=== PATIENT | female | born 1985 | race Caucasian/White ===

== ENCOUNTER 2020-09-20 16:01 | Emergency (ER) | payer OTHER ==
[~2020-09-20 16:01] MED LIST: ANTIVERT25 MG PO; ATARAX25 MG PO; ATIVAN0.5 MG PO; CARDIZEM CD180 MG PO; CATAPRES0.1 MG PO; CHLORDIAZEPOXID25 MG PO; COZAAR 25MG TAB25 MG PO; HCTZ25 MG PO; LOPRESSOR25 MG PO; MAGNESIUM500 MG PO; MIRALAX17 GM PO; NORVASC5 MG PO; ONDANSETRON HCL4 MG PO; PAXIL20 MG PO; PEPCID AC20 MG PO; PERCOCET 7.5/321 TAB PO; PRILOSEC20 MG PO; PYLERA CAPSULE1 EACH PO; VITAMIN D1000 UNIT PO; XANAX0.5 MG PO; ZOFRAN4 MG PO
[2020-09-20] MEDS ORDERED: DUONEB 2.5-0.5M1 AMP PO (18:48)
[2020-09-20] MEDS ORDERED: COMBIVENT RESPIM4 GM PO (18:48)
== END 2020-09-20 19:08 | disposition home or self-care (01) ==
LOC: FER 16:01
DX: U07.1 COVID-19 (principal); J45.909 Unspecified asthma, uncomplicated; F17.210 Nicotine dependence, cigarettes, uncomplicated; Z88.0 Allergy status to penicillin
CPT/HCPCS: 71045; J2930; U0002

== ENCOUNTER 2020-10-13 17:57 | Emergency (ER) | payer OTHER ==
[~2020-10-13 17:57] MED LIST changes: +COMBIVENT RESPIM4 GM PO; +DUONEB 2.5-0.5M1 AMP PO
[2020-10-13 18:42] LABS: BASOPHIL 0.8 % (0-2); HCT 43.2 % (37.0-47.0); HGB 14.4 g/dl (12.5-16.0); LYMPHOCYTE 21.5 % (15-48); MCH 32.6 pg (25.0-31.0); MCHC 33.3 g/dL (32.0-36.0); MCV 97.7 fL (78.0-100.0); MONOCYTE 5.4 % (0-12); MPV 9.2 fL (6.0-9.5); NRBC 0; PLT 415 K/uL (150-400); RBC 4.42 M/uL (4.20-5.40); RDW 13.4 % (11.5-14.0); WBC 9.8 K/uL (4.0-10.5)
[2020-10-13 19:13] LABS: ALBUMIN 3.4 g/dL (3.4-5.0); BILIRUBIN - TOTAL 0.5 mg/dL (0.2-1.0); BUN/CREAT RATIO (CALC) 21.7 RATIO; C-REACTIVE PROTEIN 0.8 mg/dL (<=0.90); CREATININE 0.46 mg/dL (0.51-0.95); GLOBULIN (CALCULATION) 3.5 g/dL; POTASSIUM 3.9 mmol/L (3.5-5.1); TOTAL PROTEIN 6.9 g/dL (6.4-8.2)
[2020-10-13] MEDS ORDERED: PREDNISONE20 MG PO (20:58)
== END 2020-10-13 21:28 | disposition home or self-care (01) ==
LOC: FER 17:57
PROVIDERS: Emergency Medicine
DX: J20.9 Acute bronchitis, unspecified (principal); J45.909 Unspecified asthma, uncomplicated; F17.210 Nicotine dependence, cigarettes, uncomplicated; Z86.16 Personal history of COVID-19
CPT/HCPCS: 36415; 71250; 80053; 82728; 84145; 84443; 84484; 85025; 86140; 93005; 94640; 94664; J2930